=== PATIENT | female | born 1955 | race Caucasian/White ===

== ENCOUNTER → 2017-01-20 | Outpatient (CLI) | payer OTHER ==
[~2017-01-20] MED LIST: ACETAMINOPHEN325 M1; ARAVA20 MG PO; BENICAR40 MG PO; CLONAZEPAM 0.50.5 M1 PO; COLACE100 MG PO; FENTANYL PA12 MCG/H1 TRANSDERM; FENTANYL PA12 MCG/HR TP; FERREX 150 FORT1 CAP PO; FOLIC ACID1 MG PO; GLYCOPYRROLATE; HYDROXYCHLOROQ200 M1 PO; IBUPROFEN 200200 M1; K-DUR 20 MEQ T20 MEQ PO; MELATONIN5 M1 PO; METHADONE HCL 110 M1 PO; MOBIC15 MG PO; NORVASC5 MG PO; OXYCODONE HCL 55 MG PO; OXYCONTIN10 M1 PO; PERCOCET PO; PRILOSEC 20 MG20 MG PO; REMERON 30 MG T30 M1 PO; REQUIP XL2 MG PO; REQUIP2 MG PO; RITUXIN IV; ROXICODONE5 M1 PO; SEROQUEL 100 M100 M1 PO; SEROQUEL200 MG PO; SIMVASTATIN40 MG PO; TRIAMTERENE/HCT1 CA1 PO; TYLENOL325 MG PO; VENLAFAXINE HC150 MG PO; VITAMIN D 5050000 I1 PO; XARELTO10 MG PO
== END ==
LOC: MRI 09:01
DX: S46.012A Strain of muscle(s) and tendon(s) of the rotator cuff of left shoulder, initial encounter (principal); M19.012 Primary osteoarthritis, left shoulder; M65.812 Other synovitis and tenosynovitis, left shoulder; M25.412 Effusion, left shoulder; X58.XXXA Exposure to other specified factors, initial encounter; Y93.89 Activity, other specified; Y92.89 Other specified places as the place of occurrence of the external cause; Y99.8 Other external cause status

== ENCOUNTER → 2017-02-23 | Outpatient (CLI) | payer OTHER ==
[~2017-02-23] VITALS: Ht 165.1 cm; Wt 86.2 kg
[~2017-02-23] MED LIST changes: +CENTRUM SILVER1 EAC4 PO; +RITUXAN100 MG/10 IV; +ROPINIROLE HCL2 MG PO
--- NOTE | ~2017-02-23 | CATHLAB ---
[facility] [place] [address] INVASIVE PROCEDURE REPORT Name: DARIUS HEMPHILL Room #: REG [facility]#: [id number] Admission: 02/23/17 Attend Phys: Bartolome Muhammad MD Discharge: Date of : 55 Date of Service: 02/23/17 1058 Report #: [id number] THIS REPORT FOR: //name// APPROVED REPORT Patient Details Patient Status: Out-Patient Room #: The patient is a 61 year-old female Event Personnel Bartolome Muhammad Resident Programs Assistant, Robin Dangelo RN, Keeley Buitrago Sandifer, David Monitor, Mac Ojeda RN general utility machine operator Performed Left Heart Cath w/or w/o Coronaries [id number] [facility] Indication Positive stress test, Pre-op clearance Risk Factors Hypercholesterolemia, Hypertension Procedure Narrative The Right Groin^ was infiltrated with 1% Lidocaine subcutaneous anesthesia. A PINNACLE 4FR Sheath #[id number] sheath was inserted into the RFA^. Coronary angiography was performed using coronary diagnostic catheters. The right coronary system was accessed and visualized with a JR4 catheter. The left coronary system was accessed and visualized with a JL4 catheter. The left ventricle was accessed and visualized with a PIGTAIL catheter. Left ventricular/Aortic Valve gradient assessed via catheter pullback. Left ventriculogram was performed in 30 degree projection. Hemostasis was obtained with manual pressure following sheath removal without any complications. The patient tolerated the procedure well and there were no complications associated with the procedure. There was no hematoma. Intraoperative Conscious Sedation Sedation start time: 9.12 Case end Time: 9.25 Fentanyl mcg Versed mg Fluoro Time: 2.30 minutes Dose: 382 mGy [facility] [place] [address] INVASIVE PROCEDURE REPORT Name: DARIUS HEMPHILL Room #: REG [facility]#: [id number] Admission: 02/23/17 Attend Phys: Bartolome Muhammad MD Discharge: Date of : 55 Date of Service: 02/23/17 1058 Report #: [id number] Contrast Type and Amount: Visipaque 1,200 ml Coronary Angiography The patient's coronary anatomy is right dominant. Diagnostic Cath Left Main patent vessel, no flow limiting lesions. LAD Moderate size caliber vessel, traveling down the anterior wall and wrapping around the apex. There are no flow-limiting lesions. There is minimal plaquing in the mid segment, at the bifurcation of the second diagonal artery. Diagonal 1 Small-caliber vessel. Diagonal 2 Mild plaquing at the ostium, less than 20%. Circumflex Patent vessel, no flow limiting lesions. OM1 Moderate size caliber vessel, with no flow-limiting lesions. Right Coronary Dominant vessel, with no flow-limiting lesions. R PDA Patent vessel, no flow-limiting lesions. RPLV Patent vessel, with no flow-limiting lesions. Left Ventriculography The left ventricle is normal in size with normal contractility. The left ventricular ejection fraction is estimated to be >55%. Hemodynamics The aortic pressure is 150/72 mmHg with a mean of 103 mmHg. The left ventricular pressure is 173/9 mmHg with a mean of mmHg. The left ventricular end diastolic pressure is 31 mmHg. There was no gradient across the aortic valve upon pullback. Pullback from the left ventricle to the aorta revealed no gradient across the aortic valve. Conclusion 1. Patent epicardial vessels, with no flow-limiting lesions. 2. Minimal disease noted in the second diagonal artery. 3. Right dominant system. 4. Normal LV systolic function. 5. Risk factor management. <ELECTRONICALLY SIGNED> By: Bartolome Muhammad MD 02/23/17 1058 1058 Bartolome Muhammad MD /INF
[2017-02-23 07:11] VITALS: BP 141/68
[2017-02-23 07:34] LABS: HEMATOCRIT 36.5 % (37.0-47.0); HEMOGLOBIN 12.2 gm/dL (12.0-15.0); MCH 31.5 pg (26.0-34.0); MCHC 33.6 g/dL (28.0-37.0); MCV 93.7 fL (80.0-100.0); RBC 3.89 mil/uL (4.20-5.00); RDW 12.7 % (10.5-14.5); WBC 3.4 thou/uL (4.0-11.0)
[2017-02-23 07:43] LABS: CALCIUM 9.1 mg/dL (8.5-10.1); POTASSIUM 3.2 mmol/L (3.5-5.1)
== END | disposition home or self-care (01) ==
LOC: CATH 06:32
PROVIDERS: Internal Medicine Cardiovascular Disease
DX: I25.10 Atherosclerotic heart disease of native coronary artery without angina pectoris (principal); I10 Essential (primary) hypertension; E78.00 Pure hypercholesterolemia, unspecified; M06.9 Rheumatoid arthritis, unspecified; K21.9 Gastro-esophageal reflux disease without esophagitis; F32.89 Other specified depressive episodes; F41.8 Other specified anxiety disorders; Z98.890 Other specified postprocedural states; Z90.710 Acquired absence of both cervix and uterus; Z90.49 Acquired absence of other specified parts of digestive tract; Z96.653 Presence of artificial knee joint, bilateral; Z88.2 Allergy status to sulfonamides; Z79.899 Other long term (current) drug therapy; Z88.8 Allergy status to other drugs, medicaments and biological substances

== ENCOUNTER 2017-02-24 05:22 | Inpatient (IN) | payer OTHER ==
[2017-02-14 13:03] LABS: HEMATOCRIT 41.4 % (37.0-47.0); MCH 31.5 pg (26.0-34.0); MCHC 33.8 g/dL (28.0-37.0); MCV 93.4 fL (80.0-100.0); RBC 4.43 mil/uL (4.20-5.00); WBC 4.3 thou/uL (4.0-11.0)
[2017-02-14 13:12] LABS: CALCIUM 9.2 mg/dL (8.5-10.1); CREATININE 0.8 mg/dL (0.6-1.0); POTASSIUM 3.9 mmol/L (3.5-5.1)
[2017-02-14 13:47] LABS: URINE BILIRUBIN NEGATIVE (Negative); URINE BLOOD NEGATIVE (Negative); URINE COLOR YELLOW; URINE GLUCOSE-RANDOM* NEGATIVE (Negative); URINE KETONES NEGATIVE (Negative); URINE LEUKOCYTES-REFLEX 1+ (Negative); URINE PROTEIN (DIPSTICK) NEGATIVE (Negative); URINE SPECIFIC GRAVITY >= 1.030 (1.003-1.035); URINE UROBILINOGEN 0.2 E.U./dl (0.2-1.0)
[2017-02-14 13:56] LABS: CASTS None Seen /LPF (None Seen); CRYSTALS None Seen /LPF (None Seen); SQUAMOUS None Seen /LPF (0-3); URINE RBC 0-2 Rare /HPF (0-2); URINE WBC-REFLEX 6-15 Few /HPF (0-5)
[~2017-02-24] VITALS: Ht 165.1 cm; Wt 90.3 kg
--- NOTE | ~2017-02-24 | EKG ---
[place] [address] [facility] [place] [address] ELECTROCARDIOGRAM REPORT Name: DARIUS HEMPHILL Room #: 416-P ADM IN M.R.#: [id number] Admission: 02/24/17 Attend Phys: Davi Andrews Discharge: Date of : 55 Report #: [id number] THIS REPORT FOR: //name// [facility] Test Date: 2017-02-24 Test Time: 11:06:08 Pat Name: DARIUS HEMPHILL Department: Room: [facility] Gender: F Coding Clerk: RAGHAVENDRA : 1955 Requested By: Maryam Pruett Order Number: [id number] MD: Garret Persaud Measurements Intervals [place] Rate: 85 P: -2 MI: 217 QRS: -52 QRSD: 125 T: -8 QT: 422 QTc: 502 Interpretive Statements Sinus rhythm Borderline prolonged MI interval Probable left atrial enlargement Nonspecific IVCD with LAD Electronically Signed On 02-25-2017 12:39:32 SHEET METAL FOREMAN by Garret Persaud [email or web address] <ELECTRONICALLY SIGNED> By: Garret Persaud MD 02/25/17 1239 1106 05 MD ADRIANO Castelan
--- NOTE | ~2017-02-24 | O ---
[facility] [place] [address] OPERATIVE REPORT Name: DARIUS HEMPHILL Room #: 416-P ADM IN M.R.#: [id number] Admission: 02/24/17 Attend Phys: Davi Andrews Discharge: Date of : 55 Report #: [id number] THIS REPORT FOR: //name// CC: Davi Roberson DATE OF SERVICE: 02/24/2017 PREOPERATIVE DIAGNOSES: Left shoulder pain, rheumatoid arthritis. POSTOPERATIVE DIAGNOSES: Left shoulder pain, rheumatoid arthritis with biceps tendinopathy. PROCEDURE PERFORMED: Left total shoulder arthroplasty with open biceps tenodesis. SURGEON: Davi Sam M.D. OCEAN RESCUE LIEUTENANT: OPAL Lazo, a recent name change from Farida Parrish PA-C. ANESTHESIA: General with preoperative interscalene block. FLUIDS: 1200 mL crystalloid. ESTIMATED BLOOD LOSS: Approximately 25 mL. IMPLANTS UTILIZED: DePuy Global Unite stem size 12 with 135 degree size 12 proximal body, 44 x 18 mm eccentric glenoid, 40 mm anchor peg glenoid. DESCRIPTION OF PROCEDURE: After proper identification of the patient and the operative site in the preoperative holding area, the operative site was signed by myself. Anesthesia, Dr. Pruett discussed the risks, benefits, alternatives and potential complications of anesthesia and an interscalene block and the patient elected to proceed with this. After satisfactory block, the patient was brought back to the operative suite. After induction of satisfactory general endotracheal anesthesia, the patient was carefully positioned on the beach chair with head of bed elevated approximately 40 degrees. With left upper extremity supported by [employer]. spider limb positioning system, the left shoulder was sterilely prepped and draped in usual manner and placed. An Ioban was utilized for final skin draping. Qualified certified ophthalmic assistant was utilized throughout the entire procedure to aid in patient limb positioning, retraction of the soft tissues, instrument passage closure and sling application. Anterior deltopectoral approach was planned. Skin was incised sharply. Full [facility] [address] [place] [address] OPERATIVE REPORT Name: DARIUS HEMPHILL Room #: 416-P ADM IN M.R.#: [id number] Admission: 02/24/17 Attend Phys: Davi Andrews Discharge: Date of : 55 Report #: [id number] thickness skin flaps were developed. Cephalic vein was identified and retracted laterally. Subdeltoid space was carefully opened. Biceps tenosynovitis and partial thickness tearing was noted. Biceps was tenodesed to the undersurface of the pectoralis major tendon using #2 FiberWire. Free end of the stump was then followed proximally where the bicipital groove was opened as well as the rotator interval. Anterior circumflex vessels were identified. Right angle clamp was used to past an 0 Vicryl where these were tied and then cauterized. A lesser tuberosity osteotomy was performed with a flexible osteotome. The supra and infraspinatus were otherwise intact and normal in appearance. Examination of the glenohumeral joint revealed peripheral spurring about the humeral head. Thinning of the chondral surface of the humeral head down to bone was noted on the humerus as well as the superior glenoid. Majority of the degenerative changes were appreciated more on the superior aspect of the joint. Humeral head was delivered. Care was taken to identify and protect the axillary nerve throughout the entire procedure. Humeral head osteotomy was performed using a 135 degree cutting guide. This was performed on approximately 30 degrees of retroversion matching the patient's [place] version. This measured 44 x 18 mm on the backtable. Stem was prepared by hand up to a size 12 stem. A [employer] cutter broach was utilized followed by the trial broach. This was impacted into position and a protection plate was threaded on to this. At this point, the anterior capsular structures were carefully divided from the subscapularis with a right angle clamp. These were divided under direct visualization. Anterior Bankart retractor was placed protecting the subscapularis and with the joint distracted by lamina chain maker loom control, the labrum and remaining biceps tendon was removed circumferentially. Inferior capsule was carefully released off the glenoid. Great care was taken to protect the axillary nerve. At this point, the glenoid had excellent exposure. Trial revealed a 40 mm glenoid provided the best overall fit. Using the glenoid guide, a guidepin was inserted. Face of the glenoid was reamed. Any remaining soft tissue was carefully removed. Step drill was utilized. This bone was saved. Next, peripheral pegs were drilled and derotation pegs were utilized during this. Joint was thoroughly irrigated with normal saline. Trial was fully impacted, was well seated and had excellent fit. This was removed. FloSeal was utilized after the joint was again thoroughly irrigated for hemostasis. A 40 mm anchor peg glenoid was bone grafted on the backtable and bone cement was prepared. This was injected into the peripheral pegs which were all contained after the FloSeal had been irrigated out. This was pressurized by hand with a syringe. The bone grafted glenoid was carefully impacted into position. It was fully seated and held into position while the cement had cured. Again, the joint was thoroughly irrigated with normal saline. A 48 x 18 eccentric head was placed which provided excellent restorationism of the proximal humeral anatomy and there is approximately 50% translation posteriorly. Trial implants were removed. The broach osteotome for the Global Unite system was carefully inserted and a size 12 stem was assembled on the back table. Four drill holes were placed in the anterior humeral head, four #2 FiberWires to repair of the subscapularis. The inferior 2 sutures were wrapped around the stem. The stem was impacted into [facility] [address] [place] [address] OPERATIVE REPORT Name: JOBY,DARIUS OSCAR Room #: 416-P ADM IN M.R.#: [id number] Admission: 02/24/17 Attend Phys: Davi Andrews Discharge: Date of : 55 Report #: [id number] position, it had excellent fit. The head was impacted into position with the appropriate eccentricity been placed more posterior superior. Shoulder was reduced. Joint was thoroughly irrigated. Subscapularis was repaired with four #2 FiberWires in a modified Dionisio-Kevyn technique. Lateral portion of the rotator interval was then closed with #2 FiberWire. Shoulder could easily be externally rotated 45 degrees. Joint was again thoroughly irrigated with normal saline. One gram vancomycin powder was utilized, half of this deep. Deltopectoral interval was closed with 0 Vicryl. The other half of vancomycin powder was utilized, 2-0 Vicryl was used to close subcutaneous tissues followed by running 3-0 Monocryl followed by Dermabond. Sterile dressing was applied as well as a sling and at time of dictation, the patient was still in the operative suite with anticipated discharge to recovery room in stable condition. <ELECTRONICALLY SIGNED> By: Davi Sam MD 02/25/17 0923 0946 1133 Davi Sam MD /nt
--- NOTE | ~2017-02-24 | EKG ---
[address] [place] [address] ELECTROCARDIOGRAM REPORT Name: DARIUS HEMPHILL Room #: PRE IN .Janet#: [id number] Admission: Attend Phys: Davi Andrews Discharge: Date of : 55 Report #: [id number] THIS REPORT FOR: //name// [facility] Test Date: 2017-02-14 Test Time: 13:19:04 Pat Name: DARIUS BAKERARTZ Department: Room: Gender: F Utility Helicopter Repairer: mariana : 1955 Requested By: Davi Sam Order Number: [id number] MD: Garret Persaud Measurements Intervals [place] Rate: 75 P: 0 [place]: 190 QRS: -49 QRSD: 129 T: 30 QT: 410 QTc: 458 Interpretive Statements Sinus rhythm Left bundle branch block Baseline wander in lead(s) II,III,aVF Compared to ECG 09/02/2013 08:49:54 Left bundle-branch block now present Left-axis deviation no longer present Left ventricular hypertrophy no longer present Myocardial infarct finding no longer present Electronically Signed On 02-14-2017 21:49:10 WALL INSULATION SPRAYER by Garret Persaud [email or web address] <ELECTRONICALLY SIGNED> By: Garret Persaud MD 02/14/17 2149 1319 1319 Garret Persaud MD /EPI
[2017-02-24 06:20] VITALS: BP 154/82
[2017-02-24 11:27] VITALS: BP 130/69
[2017-02-24 11:33] VITALS: BP 134/75
[2017-02-24 15:43] VITALS: BP 141/71
[2017-02-24 20:27] VITALS: BP 128/62
[2017-02-25 00:01] VITALS: BP 128/65
[2017-02-25 03:56] LABS: HEMATOCRIT 30.5 % (37.0-47.0); HEMOGLOBIN 10.4 gm/dL (12.0-15.0)
[2017-02-25 04:03] LABS: POTASSIUM 3.8 mmol/L (3.5-5.1)
[2017-02-25 05:20] VITALS: BP 141/73
[2017-02-25 08:00] VITALS: BP 146/70
[2017-02-25 09:33] VITALS: BP 141/73
[2017-02-25 09:34] VITALS: BP 141/73
== END 2017-02-25 13:12 | disposition home or self-care (01) | DRG 483 ==
LOC: PRE → TBA 05:22 → PRE 05:23 → 4N 11:03 → PRE 12:22 → 4N 02-25 13:12
PROVIDERS: Orthopaedic Surgery Sports Medicine; Physician Assistant Surgical
PROC: 0RRK0JZ Replacement of Left Shoulder Joint with Synthetic Substitute, Open Approach (ICD-10-PCS; principal; 2017-02-24)
PROC: 0LS40ZZ Reposition Left Upper Arm Tendon, Open Approach (ICD-10-PCS; 2017-02-24)
DX: M06.812 Other specified rheumatoid arthritis, left shoulder (principal); M75.22 Bicipital tendinitis, left shoulder; F41.9 Anxiety disorder, unspecified; F32.9 Major depressive disorder, single episode, unspecified; M81.0 Age-related osteoporosis without current pathological fracture; Z96.651 Presence of right artificial knee joint; M75.42 Impingement syndrome of left shoulder; M19.012 Primary osteoarthritis, left shoulder; Z88.2 Allergy status to sulfonamides; Z88.8 Allergy status to other drugs, medicaments and biological substances; Z90.710 Acquired absence of both cervix and uterus
CPT/HCPCS: 10790; 50010; 50101; 50172; 50386; 50417; 50697; 50733; 50935; 51751; 51771; 52138; 53000; 53078; 54118; 55435; 56521; 56524; 56525; 56526; 56530; 57095; 62110; 62900; 64039; 70005